=== PATIENT | female | born 1960 | race African-American/Black ===

== ENCOUNTER 2018-04-27 00:22 | Emergency (ER) | payer MEDICAID ==
[~2018-04-27] VITALS: Ht 162.6 cm; Wt 98.9 kg
[2018-04-27] MEDS ORDERED: ADALAT20 MG ORAL (00:44)
[2018-04-27 01:15] VITALS: BP 141/74
[2018-04-27] MEDS ORDERED: Acetaminophen 500mg (ES) tab ORAL ONE (01:15)
[2018-04-27 02:02] LABS: APPEARANCE,URINE CLEAR; BILIRUBIN, URINE NEGATIVE (NEGATIVE); COLOR,URINE PALE YELLOW; GLUCOSE, URINE (UA) NEGATIVE (NEGATIVE); KETONES,URINE NEGATIVE (NEGATIVE); LEUKOCYTE ESTERASE ,URINE NEGATIVE (NEGATIVE); NITRITE,URINE NEGATIVE (NEGATIVE); PH,URINE 6.5 (4.5-8.0); PROTEIN,URINE NEGATIVE (NEGATIVE); UROBILINOGEN,URINE NORMAL MG/DL (0.0-1.0)
[2018-04-27 02:05] LABS: BASOPHILS % (AUTO) 1.7 % (0.0-2.0); EOSINOPHILS % (AUTO) 3.6 % (0.0-3.0); HEMATOCRIT 45.3 % (37.0-47.0); HEMOGLOBIN 14.3 G/DL (12.0-16.0); LYMPHOCYTES % (AUTO) 43.4 % (20.0-45.0); MEAN CORPUSCULAR VOLUME 91 FL (80-99); MONOCYTES % (AUTO) 9.5 % (1.0-10.0); NEUTROPHILS % (AUTO) 41.7 % (45.0-75.0); PLATELET COUNT 184 K/UL (150-450); RED CELL DISTRIBUTION WIDTH 13.4 % (11.6-14.8); WHITE BLOOD COUNT 4.9 K/UL (4.8-10.8)
[2018-04-27 02:14] LABS: ANION GAP 4 mmol/L (5-15); BLOOD UREA NITROGEN 6 mg/dL (7-18); CALCIUM 9.3 MG/DL (8.5-10.1); CARBON DIOXIDE 26 MMOL/L (21-32); CHLORIDE 106 MMOL/L (98-107); CREATININE 0.6 MG/DL (0.55-1.30); SODIUM 136 MMOL/L (136-145)
[2018-04-27 02:27] LABS: ALANINE AMINOTRANSFERASE 22 U/L (12-78); ALBUMIN 3.9 G/DL (3.4-5.0); ALBUMIN/GLOBULIN RATIO 0.9 (1.0-2.7); ALKALINE PHOSPHATASE 63 U/L (46-116); ASPARTATE AMINO TRANSFERASE 31 U/L (15-37); BILIRUBIN,TOTAL 0.3 MG/DL (0.2-1.0)
[2018-04-27] MEDS ORDERED: NORVASC5 MG ORAL (02:47)
[2018-04-27 02:48] VITALS: BP 136/69
--- NOTE | 2018-04-27 02:48 | Diagnostic Imaging Report ---
EXAM: CT Head Without Intravenous Contrast. CLINICAL HISTORY: PAIN TECHNIQUE: Axial computed tomography images of the head/brain without intravenous contrast. CTDI is 78.5 mGy and DLP is 1281 mGy-cm. One or more of the following dose reduction techniques were used: automated exposure control, adjustment of the mA and/or kV according to patient size, use of iterative reconstruction technique. COMPARISON: No relevant prior studies available. FINDINGS: Brain: Unremarkable. No hemorrhage. No significant white matter disease. No edema. Ventricles: Unremarkable. No ventriculomegaly. Bones: No acute fracture. Sinuses: Unremarkable as visualized. No acute sinusitis. Mastoid air cells: Unremarkable as visualized. No mastoid effusion. IMPRESSION: Normal head/brain.
[2018-04-27 02:50] VITALS: BP 136/69
--- NOTE | 2018-04-28 05:48 | Emergency Room Report ---
History of Present Illness General Chief Complaint: Hypertension Source: Patient Present Illness HPI Patient is a 57-year-old female presented after increased blood pressure. Patient gradual onset of symptoms. She reports having increased blood pressure and had taken some the extended-release medication for her blood pressure. Patient reports having moderate headache. She denies any vomiting. She denies any dysuria or abdominal pain.The patient feels her blood pressure may be elevated due to recent stress at home. Allergies: Coded Allergies: IODINE (Verified Allergy, Intermediate, Hives, Itching, Vomiting, 04/27/18) CODEINE (Verified Allergy, Unknown, Hives, 04/27/18) Patient History Last Menstrual Period: 20 years ago Reviewed Nursing Documentation: PMH: Agreed; PSxH: Agreed Nursing Documentation-PMH Hx Hypertension: Yes Hx Pacemaker: No Hx Asthma: No Hx Diabetes: No Hx Cancer: Yes - Colon Ca Remission 10 years Review of Systems All Other Systems: negative except mentioned in HPI Physical Exam Vital Signs Date Time Temp Pulse Resp B/P (MAP) Pulse Ox O2 Delivery O2 Flow Rate FiO2 04/27/18 00:38 98.2 90 16 175/96 95 Room Air 98.2 General Appearance: well appearing, no apparent distress, alert, GCS 15 Head: normocephalic, atraumatic ENT: hearing grossly normal, normal voice Neck: full range of motion, supple Respiratory: no respiratory distress, speaking full sentences Musculoskeletal: no calf tenderness Neurologic: normal gait Psychiatric: mood/affect normal Skin: no rash Medical Decision Making Diagnostic Impression: Primary Impression: Hypertension ER Course Patient presented for elevated blood pressure. The differential diagnosis included was not limited to myocardial infarction, hypertensive crisis, substance abuse, medication withdrawal, medication noncompliance.Because of complexity of patient's case laboratory testing and imaging studies were ordered. The patient was noted to have elevated blood pressure. This had spontaneously lowered since patient had taken her medications. I EKG interpreted by me showed normal sinus rhythm without acute ST or T wave changes. Laboratory studies were unremarkable. CT the head read by radiology showed no evidence of acute intracranial hemorrhage or CVA.The patient is advised to follow up with primary care doctor in 1-2 days. Patient is advised to return if any worsening condition or if any changes in status that are concerning. This report is dictated with [employer] bench hand software which may occasionally lead to discrepancies related to use of this software. Labs Test 04/27/18 01:43 White Blood Count 4.9 K/UL (4.8-10.8) Red Blood Count 5.00 M/UL (4.20-5.40) Hemoglobin 14.3 G/DL (12.0-16.0) Hematocrit 45.3 % (37.0-47.0) Mean Corpuscular Volume 91 FL (80-99) Mean Corpuscular Hemoglobin 28.7 PG (27.0-31.0) Mean Corpuscular Hemoglobin Concent 31.7 G/DL (32.0-36.0) Red Cell Distribution Width 13.4 % (11.6-14.8) Platelet Count 184 K/UL (150-450) Mean Platelet Volume 10.3 FL (6.5-10.1) Neutrophils (%) (Auto) 41.7 % (45.0-75.0) Lymphocytes (%) (Auto) 43.4 % (20.0-45.0) Monocytes (%) (Auto) 9.5 % (1.0-10.0) Eosinophils (%) (Auto) 3.6 % (0.0-3.0) Basophils (%) (Auto) 1.7 % (0.0-2.0) Urine Color Pale yellow Urine Appearance Clear Urine pH 6.5 (4.5-8.0) Urine Specific [place] 1.010 (1.005-1.035) Urine Protein Negative (NEGATIVE) Urine Glucose (UA) Negative (NEGATIVE) Urine Ketones Negative (NEGATIVE) Urine Occult Blood 1+ (NEGATIVE) Urine Nitrite Negative (NEGATIVE) Urine Bilirubin Negative (NEGATIVE) Urine Urobilinogen Normal MG/DL (0.0-1.0) Urine Leukocyte Esterase Negative (NEGATIVE) Urine RBC 0-2 /HPF (0 - 2) Urine WBC 0 /HPF (0 - 2) Urine Squamous Epithelial Cells Few /LPF (NONE/OCC) Urine Bacteria None /HPF (NONE) Sodium Level 136 MMOL/L (136-145) Potassium Level 4.0 MMOL/L (3.5-5.1) Chloride Level 106 MMOL/L (98-107) Carbon Dioxide Level 26 MMOL/L (21-32) Anion Gap 4 mmol/L (5-15) Blood Urea Nitrogen 6 mg/dL (7-18) Creatinine 0.6 MG/DL (0.55-1.30) Estimat Glomerular Filtration Rate > 60 mL/min (>60) Glucose Level 103 MG/DL (74-106) Calcium Level 9.3 MG/DL (8.5-10.1) Total Bilirubin 0.3 MG/DL (0.2-1.0) Aspartate Amino Transf (AST/SGOT) 31 U/L (15-37) Alanine Aminotransferase (ALT/SGPT) 22 U/L (12-78) Alkaline Phosphatase 63 U/L (46-116) Troponin I 0.000 ng/mL (0.000-0.056) Pro-B-Type Natriuretic Peptide 45 pg/mL (0-125) Total Protein 8.3 G/DL (6.4-8.2) Albumin 3.9 G/DL (3.4-5.0) Globulin 4.4 g/dL Albumin/Globulin Ratio 0.9 (1.0-2.7) Thyroid Stimulating Hormone (TSH) 1.683 uiU/mL (0.358-3.740) Last Vital Signs Date Time Temp Pulse Resp B/P (MAP) Pulse Ox O2 Delivery O2 Flow Rate FiO2 04/27/18 02:50 98.2 16 136/69 95 Room Air 98.2 04/27/18 01:15 79 Status: improved Disposition: HOME, SELF-CARE Condition: Stable Scripts Amlodipine Besylate (Norvasc) 5 Mg Tablet 5 MG ORAL DAILY, #30 TAB Prov: Charles Mclaughlin MD 04/27/18 [facility]errals[facility] (PCP) Patient Instructions: Hypertension Charles Mclaughlin MD Apr 28, 2018 05:48
--- NOTE | 2018-04-29 14:22 | Cardiology Report ---
APPROVED REPORT EKG Measurement Heart [id number] Normal sinus rhythm Voltage criteria for left ventricular hypertrophy Abnormal ECG
== END 2018-04-27 02:51 | disposition home or self-care (01) ==
LOC: EMR 00:57
DX: I10 Essential (primary) hypertension (principal); Z85.038 Personal history of other malignant neoplasm of large intestine; Z88.5 Allergy status to narcotic agent
CPT/HCPCS: 36415; 70450; 80053; 81001; 83880; 84443; 84484; 85025; 93005; 99283

== ENCOUNTER 2018-06-16 11:28 | Emergency (ER) | payer MEDICAID ==
[~2018-06-16] VITALS: Ht 162.6 cm; Wt 98.9 kg
[~2018-06-16 11:28] MED LIST: ADALAT20 MG ORAL; NORVASC5 MG ORAL
[2018-06-16 11:58] VITALS: BP 156/86
[2018-06-16] MEDS ORDERED: CALADRYL 1%-8%177 ML TP (12:13)
[2018-06-16] MEDS ORDERED: CLARITIN10 MG ORAL (12:13)
[2018-06-16] MEDS ORDERED: PREDNISONE20 MG ORAL (12:13)
--- NOTE | 2018-06-16 12:14 | Emergency Room Report ---
History of Present Illness General Chief Complaint: Skin Rash/Abscess Source: Patient Present Illness HPI 57-year-old female patient presents ER complaining of multiple bites on her bilateral lower extremities for the past 2 days. Reports extremely pruritic. Reports that shortly she was "bit by spiders" working in the backyard. Denies fever, chest pain, shortness of breath. Denies read streaking. Denies tenderness to palpation. Denies pain. Denies vomiting or tongue swelling. Reports took one Benadryl last night, has not taken any other medications. Reports applied alcohol and witch leyla to affected areas without relief of symptoms. Denies history of diabetes. Allergies: Coded Allergies: IODINE (Verified Allergy, Intermediate, Hives, Itching, Vomiting, 04/27/18) CODEINE (Verified Allergy, Unknown, Hives, 04/27/18) Patient History Past Medical History: see triage record Reviewed Nursing Documentation: PMH: Agreed; PSxH: Agreed Nursing Documentation-PMH Past Medical History: No History, Except For Hx Cardiac Problems: No Hx Hypertension: Yes Hx Pacemaker: No Hx Asthma: No Hx COPD: No Hx Diabetes: No Hx Cancer: Yes - Colon Ca Remission 10 years Hx Gastrointestinal Problems: No Hx Dialysis: No History Of Psychiatric Problem: No Hx Neurological Problems: No Hx Cerebrovascular Accident: No Hx Seizures: No Review of Systems All Other Systems: negative except mentioned in HPI Physical Exam Vital Signs Date Time Temp Pulse Resp B/P (MAP) Pulse Ox O2 Delivery O2 Flow Rate FiO2 06/16/18 11:47 98.4 73 16 156/86 99 Room Air 98.4 Sp02 EP Interpretation: reviewed, normal General Appearance: well appearing, no apparent distress, alert, GCS 15, non- toxic Head: normocephalic, atraumatic Eyes: bilateral eye normal inspection, bilateral eye PERRL ENT: hearing grossly normal, normal pharynx, no angioedema, normal voice, uvula midline, moist mucus membranes Neck: full range of motion Respiratory: lungs clear, normal breath sounds, no rhonchi, no respiratory distress, no accessory muscle use, no wheezing, speaking full sentences Cardiovascular #1: regular rate, rhythm, no edema Musculoskeletal: back normal, digits/nails normal, gait/station normal, normal range of motion, non-tender Neurologic: alert, oriented x3, responsive, motor strength/tone normal, sensory intact Psychiatric: mood/affect normal Skin: rash - Bilateral extremities 8: Multiple erythematous macules surround erythema, no surrounding edema or red st no fluctuance or induration, no palpable mass,, no bite dobbins, no central clearing or Satellite lesions, no target sign Medical Decision Making PA Attestation Dr. Her is my supervising Physician whom patient management has been discussed with. Diagnostic Impression: Primary Impression: Bug bite ER Course Pt. presents to the ED c/o bug bite. Ddx considered but are not limited to atopic dermatitis, bug bite, urticaria, allergic reaction. Vital signs: are WNL, pt. is afebrile ER COURSE: physical exam shows erythematous macules with surrounding erythema, likely localized inflammatory reaction to likely bug bites. No fluctuance or induration, no palpable mass, low suspicion for abscess does not require incision and drainage. No surrounding edema, no warmth to touch, patient denies pain, no well-defined borders, low suspicion for cellulitis. Do not scratch or itch, apply cool compresses to affected area. Take Benadryl at night for itching symptoms, do not take prior to drinking, driving, or operating heavy machinery, may cause drowsiness. Followup with PCP and request referral to derm. Provided with contact information. ER precautions given, return ER for new or worsening of symptoms including but not limited to spreading rash, red streaking, chest pain, shortness of breath, intractable vomiting, tongue swelling. DISCHARGE: -Rx given for Benadryl for pruritis. SE may cause drowsiness. -Rx given for prednisone for itching symptoms. -RX provided for Caladryl lotion At this time pt. is stable for d/c to home. Patient resting comfortably, in no acute distress, nontoxic appearing. Care plan and follow up instructions have been discussed with the patient prior to discharge. Patient provided with printed patient care instructions, and any necessary prescriptions. Patient instructed to follow-up with primary care provider in 3 - 5 days. Patient questions asked and answered. Patient reports understanding and agreement to treatment plan. ER precautions given. Patient instructed to return to ER immediately for any new or worsening of symptoms including but not limited to increasing SOB, persistent fever. - Please note that this Emergency Department Report was dictated using [employer] technology software, occasionally this can lead to erroneous entry secondary to interpretation by the dictation equipment. Last Vital Signs Date Time Temp Pulse Resp B/P (MAP) Pulse Ox O2 Delivery O2 Flow Rate FiO2 06/16/18 11:58 98.4 16 156/86 99 Room Air 98.4 06/16/18 11:47 73 Disposition: HOME, SELF-CARE Condition: Stable Scripts Loratadine (CLARITIN) 10 Mg Tablet 10 MG ORAL DAILY, #21 TAB Prov: Harvey Andersen 06/16/18 Pramoxine HCl/Calamine (Caladryl 1%-8% Lotion) 177 Ml Lotion 177 ML TP BID, #177 ML Prov: Harvey Andersen 06/16/18 Prednisone* (PREDNISONE*) 20 Mg Tablet 20 MG ORAL DAILY for 4 Days, #4 TAB 0 Refills Prov: Harvey Andersen 06/16/18 Patient Instructions: Insect Bite, [id number], Poison Nyla Dermatitis Additional Instructions: Followup with primary care provider in 2-3 days. Request referral to dermatology. Do not scratch or itch. Apply cool compresses to affected area. Take medications as directed. Do not apply medication to face or skin creases. SE Benadryl drowsiness, do not take prior to drinking, driving, operating heavy machinery. Patient questions asked and answered. ER precautions given, patient instructed to return to ER immediately for any new or worsening of symptoms. [facility] Harvey Andersen Jun 16, 2018 12:14
[2018-06-16 12:33] VITALS: BP 156/86
[2018-06-17] MEDS ORDERED: BACTRIM DS TAB1 EAC1 ORAL (16:09)
[2018-06-17] MEDS ORDERED: HYDROCORTISONE30 G2 TP (16:09)
[2018-06-17] MEDS ORDERED: BACITRACIN-P28.35 GM TP (16:09)
== END 2018-06-16 12:33 | disposition home or self-care (01) ==
LOC: EMR 12:12
DX: S80.861A Insect bite (nonvenomous), right lower leg, initial encounter (principal); S80.862A Insect bite (nonvenomous), left lower leg, initial encounter; W57.XXXA Bitten or stung by nonvenomous insect and other nonvenomous arthropods, initial encounter; Y93.H2 Activity, gardening and landscaping; Y92.017 Garden or yard in single-family (private) house as the place of occurrence of the external cause; I10 Essential (primary) hypertension; Z85.038 Personal history of other malignant neoplasm of large intestine
CPT/HCPCS: 99284; J7512

== ENCOUNTER 2018-06-17 15:40 | Emergency (ER) | payer MEDICAID ==
[~2018-06-17] VITALS: Ht 162.6 cm; Wt 98.9 kg
[~2018-06-17 15:40] MED LIST changes: +CALADRYL 1%-8%177 ML TP; +CLARITIN10 MG ORAL; +PREDNISONE20 MG ORAL
[2018-06-17 15:47] VITALS: BP 148/87
[2018-06-17] MEDS ORDERED: HYDROCORTISONE30 G2 TP (16:09)
[2018-06-17] MEDS ORDERED: BACTRIM DS TAB1 EAC1 ORAL (16:09)
[2018-06-17] MEDS ORDERED: BACITRACIN-P28.35 GM TP (16:09)
--- NOTE | 2018-06-17 16:09 | Emergency Room Report ---
History of Present Illness General Chief Complaint: Skin Rash/Abscess Source: Medical Record Present Illness HPI 57-year-old female patient presents ER requesting wound check. patient was previously seen in ER for complaints. States that the wounds have become more red since her previous visit yesterday. Requesting topical antibiotics. states she does not know tetanus vaccination status. Denies diabetes. Denies fever, chest pain, shortness of breath. denies vomiting or tongue swelling. Denies contacts similar symptoms. Allergies: Coded Allergies: IODINE (Verified Allergy, Intermediate, Hives, Itching, Vomiting, 04/27/18) CODEINE (Verified Allergy, Unknown, Hives, 04/27/18) Patient History Past Medical History: see triage record Reviewed Nursing Documentation: PMH: Agreed; PSxH: Agreed Nursing Documentation-PMH Past Medical History: No History, Except For Hx Cardiac Problems: No Hx Hypertension: Yes Hx Pacemaker: No Hx Asthma: No Hx COPD: No Hx Diabetes: No Hx Cancer: Yes - Colon Ca Remission 10 years Hx Gastrointestinal Problems: No Hx Dialysis: No Hx Neurological Problems: No Hx Cerebrovascular Accident: No Hx Seizures: No Review of Systems All Other Systems: negative except mentioned in HPI Physical Exam Vital Signs Date Time Temp Pulse Resp B/P (MAP) Pulse Ox O2 Delivery O2 Flow Rate FiO2 06/17/18 15:47 98.0 73 16 148/87 98 Room Air 98.1 Sp02 EP Interpretation: reviewed, normal General Appearance: well appearing, no apparent distress, alert, GCS 15, non- toxic Head: normocephalic, atraumatic Eyes: bilateral eye normal inspection, bilateral eye PERRL ENT: hearing grossly normal, normal pharynx, no angioedema, normal voice, uvula midline, moist mucus membranes Neck: full range of motion Respiratory: lungs clear, normal breath sounds, no rhonchi, no respiratory distress, no accessory muscle use, no wheezing, speaking full sentences Cardiovascular #1: regular rate, rhythm, no edema Musculoskeletal: back normal, digits/nails normal, gait/station normal, normal range of motion, non-tender Neurologic: alert, oriented x3, responsive, motor strength/tone normal, sensory intact Skin: other - Bilateral lower extremities 8: Multiple erythematous macules with surrounding erythema and excoriations, more erythematous than previous visit, no surrounding edema or red streaking, no fluctuance or induration, no palpable mass, no bite odbbins, no central clearing or Satellite lesions, no target sign Medical Decision Making PA Attestation Dr. Benitez is my supervising Physician whom patient management has been discussed with. Diagnostic Impression: Primary Impression: Encounter for wound re-check ER Course Pt. presents to the ED for wound check. Ddx considered but are not limited to atopic dermatitis, bug bite, urticaria, allergic reaction. Vital signs: are WNL, pt. is afebrile ER COURSE: TDAp provided to patient. physical exam, bug bites appear more erythematous than previous visit, believe patient would benefit from antibiotic treatment at this time. Will provide patient with topical and oral antibiotics, hydrocortisone cream for itching symptoms. Do not scratch, apply cool compresses to affected area. Take Benadryl at night for itching symptoms, side effect drowsiness do not take prior drinking, driving, operating of machinery. Take Claritin during the day for itching symptoms. Wound check in 2-3 days, return to ER or f/u with PCP for wound check. Followup with PCP and request referral to derm. patient seen and evaluated by Dr. Benitez, agrees with assessment and treatment plan. DISCHARGE: -Rx given for Bactrim -Rx provided for Bacitracin -Rx given for hydrocortisone cream. Do not apply to face or skin creases. At this time pt. is stable for d/c to home. Patient resting comfortably, in no acute distress, nontoxic appearing. Care plan and follow up instructions have been discussed with the patient prior to discharge. Patient provided with printed patient care instructions, and any necessary prescriptions. Patient instructed to follow-up with primary care provider in 3 - 5 days. Patient questions asked and answered. Patient reports understanding and agreement to treatment plan. ER precautions given. Patient instructed to return to ER immediately for any new or worsening of symptoms including but not limited to increasing SOB, persistent fever. - Please note that this Emergency Department Report was dictated using [employer] technology software, occasionally this can lead to erroneous entry secondary to interpretation by the dictation equipment. Last Vital Signs Date Time Temp Pulse Resp B/P (MAP) Pulse Ox O2 Delivery O2 Flow Rate FiO2 06/17/18 15:47 98.0 73 16 148/87 98 Room Air 98.1 Disposition: HOME, SELF-CARE Condition: Stable Scripts Hydrocortisone (Hydrocortisone Cream 2.5%) Y Cream.appl 1 APPLIC TP BID, #28 GM Prov: Harvey Andersen 06/17/18 Trimethoprim/Sulfamethoxazole 160/800* (BACTRIM DS TABLET*) 1 Each Tablet 1 TAB ORAL TWICE A DAY, #14 TAB Prov: Harvey Andersen 06/17/18 Bacitracin/Polymyxin B Sulfate (BACITRACIN-POLYMYXIN OINTMENT) 28.35 Gm Oint...g. 1 APPLIC TP BID, #28 GM Prov: Harvey Andersen 06/17/18 Patient Instructions: Insect Bite, [id number] Additional Instructions: Followup with primary care provider in 3 -5 days. Request referral to dermatology. Do not scratch or itch. Apply cool compresses to affected area. Take medications as directed. Do not apply medication to face or skin creases. SE Benadryl drowsiness, do not take prior to drinking, driving, operating heavy machinery. Patient questions asked and answered. ER precautions given, patient instructed to return to ER immediately for any new or worsening of symptoms. Harvey Andersen Jun 17, 2018 16:09
[2018-06-17] MEDS ORDERED: Tetanus/Diptheria/Pertussis Vaccine 0.5ml Syr IM ONE (16:15)
[2018-06-17 16:18] VITALS: BP 148/87
== END 2018-06-17 16:30 | disposition home or self-care (01) ==
LOC: EMR 16:00
DX: Z48.00 Encounter for change or removal of nonsurgical wound dressing (principal); M79.661 Pain in right lower leg; Z23 Encounter for immunization; Z88.5 Allergy status to narcotic agent; Z91.048 Other nonmedicinal substance allergy status
CPT/HCPCS: 90471; 90715; 99283

== ENCOUNTER 2018-09-03 01:28 | Emergency (ER) | payer MEDICAID ==
[~2018-09-03] VITALS: Ht 162.6 cm; Wt 81.6 kg
[~2018-09-03 01:28] MED LIST changes: +BACITRACIN-P28.35 GM TP; +BACTRIM DS TAB1 EAC1 ORAL; +HYDROCORTISONE30 G2 TP
[2018-09-03 01:35] VITALS: BP 150/98
[2018-09-03 02:01] LABS: APPEARANCE,URINE CLOUDY; BILIRUBIN, URINE NEGATIVE (NEGATIVE); COLOR,URINE PALE YELLOW; GLUCOSE, URINE (UA) NEGATIVE (NEGATIVE); KETONES,URINE NEGATIVE (NEGATIVE); LEUKOCYTE ESTERASE ,URINE 3+ (NEGATIVE); NITRITE,URINE NEGATIVE (NEGATIVE); PH,URINE 6 (4.5-8.0); PROTEIN,URINE 2+ (NEGATIVE); UROBILINOGEN,URINE NORMAL MG/DL (0.0-1.0)
--- NOTE | 2018-09-03 03:50 | Emergency Room Report ---
History of Present Illness General Chief Complaint: Vaginal Source: Patient Present Illness HPI Patient presents with several days of blood on the toilet paper. She recently stopped taking amoxicillin for an upper respiratory infection. She's had urinary tract infections in the past. She is status post hysterectomy. There is some itching in the vaginal area. She denies pain. No rash. No NVD, abdominal pain. H/O colon ca Allergies: Coded Allergies: IODINE (Verified Allergy, Intermediate, Hives, Itching, Vomiting, 04/27/18) CODEINE (Verified Allergy, Unknown, Hives, 04/27/18) Patient History Past Medical History: see triage record Social History: Denies: smoking Social History Narrative from home Last Menstrual Period: 15 years ago Now: No Reviewed Nursing Documentation: PMH: Agreed; PSxH: Agreed Nursing Documentation-PMH Hx Cardiac Problems: No Hx Hypertension: Yes Hx Pacemaker: No Hx Asthma: No Hx COPD: No Hx Diabetes: No Hx Cancer: Yes - colon Hx Gastrointestinal Problems: No Hx Dialysis: No Hx Neurological Problems: No Hx Cerebrovascular Accident: No Hx Seizures: No Review of Systems All Other Systems: negative except mentioned in HPI Physical Exam Vital Signs Date Time Temp Pulse Resp B/P (MAP) Pulse Ox O2 Delivery O2 Flow Rate FiO2 09/03/18 01:32 98.4 89 16 150/98 98 Room Air Sp02 EP Interpretation: reviewed, normal General Appearance: well appearing, no apparent distress Head: normocephalic, atraumatic ENT: hearing grossly normal, normal voice Neck: full range of motion, supple Respiratory: no respiratory distress, speaking full sentences Cardiovascular #1: regular rate, rhythm Cardiovascular #2: 2+ radial (R) Gastrointestinal: normal inspection, normal bowel sounds, non tender, soft Genitourinary: no CVA tenderness, other - urethra inflammed, min cystocoel, no active bleed, some inflammation perivaginal area Musculoskeletal: no calf tenderness Neurologic: alert, normal gait Psychiatric: mood/affect normal Skin: no rash Medical Decision Making Diagnostic Impression: Primary Impression: UTI (urinary tract infection) Qualified Codes: N30.00 - Acute cystitis without hematuria ER Course Patient with blood when wiping self. She is post hysterectomy. She recently took Ampicillin for URI. DDX: UTI, vaginitis, yeast, trich amongst others. Evaluation with UA and wet mount. UA with pyuria. Macrobid and tylenol given. Clinically, suspicion high for yeast though not seen on wet mount. Discussed need for follow up with [facility]. Patient stable for outpatient observation and treatment. Laboratory Tests Test 09/03/18 01:53 Urine Color Pale yellow Urine Appearance Cloudy Urine pH 6 (4.5-8.0) Urine Specific [place] 1.020 (1.005-1.035) Urine Protein 2+ (NEGATIVE) H Urine Glucose (UA) Negative (NEGATIVE) Urine Ketones Negative (NEGATIVE) Urine Blood 5+ (NEGATIVE) H Urine Nitrite Negative (NEGATIVE) Urine Bilirubin Negative (NEGATIVE) Urine Urobilinogen Normal MG/DL (0.0-1.0) Urine Leukocyte Esterase 3+ (NEGATIVE) H Urine RBC 10-15 /HPF (0 - 2) H Urine WBC 15-20 /HPF (0 - 2) H Urine Squamous Epithelial Cells Occasional /LPF Urine Amorphous Sediment Moderate /LPF (NONE) H Urine Bacteria Few /HPF (NONE) Microbiology Date/Time Source Procedure Growth Status 09/03/18 02:43 Vaginal Wet Prep - Final Complete D/C VS with min HTN Status: improved Disposition: HOME, SELF-CARE Condition: Improved Scripts Acetaminophen (Tylenol) 325 Mg Tablet 650 MG ORAL Q6H PRN for Prn Pain/Headache/Temp > 101, #20 TAB 0 Refills Prov: Lorenzo Benitez MD 09/03/18 Fluconazole (FLUCONAZOLE) 100 Mg Tablet 100 MG ORAL DAILY PRN for at the end of the antibiotics, #1 TAB 0 Refills Prov: Lorenzo Benitez MD 09/03/18 Nitrofurantoin Monohyd/M-Cryst* (MACROBID 100 MG*) 100 Mg Capsule 100 MG ORAL EVERY 12 HOURS, #14 CAP Prov: Lorenzo Benitez MD 09/03/18 Referrals: [facility] (PCP) Lorenzo Benitez MD Sep 03, 2018 03:50
[2018-09-03] MEDS ORDERED: FLUCONAZOLE100 MG ORAL (03:52)
[2018-09-03] MEDS ORDERED: NITROFURANTOIN100 M2 ORAL (03:52)
[2018-09-03] MEDS ORDERED: TYLENOL325 MG ORAL (03:54)
[2018-09-03 04:07] VITALS: BP 142/90
[2018-09-03 04:10] VITALS: BP 146/90
== END 2018-09-03 04:07 | disposition home or self-care (01) ==
LOC: EMR 01:58
DX: N39.0 Urinary tract infection, site not specified (principal)
CPT/HCPCS: 81003; 87086; 87210; 99283

== ENCOUNTER 2018-12-09 08:02 | Emergency (ER) | payer MEDICAID ==
[~2018-12-09] VITALS: Ht 162.6 cm; Wt 95.3 kg
[~2018-12-09 08:02] MED LIST changes: +FLUCONAZOLE100 MG ORAL; +NITROFURANTOIN100 M2 ORAL; +TYLENOL325 MG ORAL
[2018-12-09 08:18] VITALS: BP 155/79
--- NOTE | 2018-12-09 08:18 | NUR ---
ED Nurse Note: A/OX4. AMBUALTED IN TO ER DUE TO FREQUENT URINATION, SLIGHT ITCHING AT VAGINAL AREA, LOWER BACK PAIN X1 WEEK. DENIES SWELLING, BLEEDING, REDNESS, AND DISCHARGE. PER PT, HER SPOUSE RECEIVED TX FOR STD YESTERDAY.
--- NOTE | 2018-12-09 08:24 | NUR ---
ED Nurse Note: URINE COLLECTED AND SENT DOWN TO THE LAB.
[2018-12-09 08:45] LABS: APPEARANCE,URINE CLEAR; BILIRUBIN, URINE NEGATIVE (NEGATIVE); COLOR,URINE PALE YELLOW; GLUCOSE, URINE (UA) NEGATIVE (NEGATIVE); KETONES,URINE NEGATIVE (NEGATIVE); LEUKOCYTE ESTERASE ,URINE NEGATIVE (NEGATIVE); NITRITE,URINE NEGATIVE (NEGATIVE); PH,URINE 5 (4.5-8.0); PROTEIN,URINE NEGATIVE (NEGATIVE); UROBILINOGEN,URINE NORMAL MG/DL (0.0-1.0)
[2018-12-09] MEDS ORDERED: Azithromycin 250mg tab ORAL ONE (08:45)
[2018-12-09] MEDS ORDERED: Lidocaine 1% MPF 10mg/ml 5ml INJ ONE (08:45)
--- NOTE | 2018-12-09 09:03 | Emergency Room Report ---
History of Present Illness General Chief Complaint: Female Urogenital Problems Source: Patient Present Illness HPI 58-year-old female presents ED for evaluation. Patient complaining of frequent urination times one week. Denies flank pain. Denies fevers or chills. Denies nausea or vomiting. States that she found out her has an STD. Patient is here to get treated. Denies any discharge. Denies fevers or chills. No other aggravating relieving factors. Denies any other associated symptoms Allergies: Coded Allergies: IODINE (Verified Allergy, Intermediate, Hives, Itching, Vomiting, 04/27/18) CODEINE (Verified Allergy, Unknown, Hives, 04/27/18) Patient History Past Medical History: other - colon cancer Past Surgical History: none Pertinent Family History: none Social History: Denies: smoking, alcohol use, drug use Now: No Immunizations: UTD Reviewed Nursing Documentation: PMH: Agreed; PSxH: Agreed Nursing Documentation-PMH Past Medical History: No History, Except For Hx Cardiac Problems: No Hx Hypertension: Yes Hx Pacemaker: No Hx Asthma: No Hx COPD: No Hx Diabetes: No Hx Cancer: Yes - colon Hx Gastrointestinal Problems: No Hx Dialysis: No Hx Neurological Problems: No Hx Cerebrovascular Accident: No Hx Seizures: No Review of Systems All Other Systems: negative except mentioned in HPI Physical Exam Vital Signs Date Time Temp Pulse Resp B/P (MAP) Pulse Ox O2 Delivery O2 Flow Rate FiO2 12/09/18 08:09 98.1 99 16 155/79 98 Room Air Sp02 EP Interpretation: reviewed, normal General Appearance: no apparent distress, alert, GCS 15, non-toxic Head: normocephalic, atraumatic Eyes: bilateral eye normal inspection, bilateral eye PERRL ENT: hearing grossly normal, normal pharynx, no angioedema, normal voice Neck: full range of motion, supple/symm/no masses Respiratory: chest non-tender, lungs clear, normal breath sounds, speaking full sentences Cardiovascular #1: regular rate, rhythm, no edema Cardiovascular #2: 2+ carotid (R), 2+ carotid (L), 2+ radial (R), 2+ radial (L) , 2+ dorsalis pedis (R), 2+ dorsalis pedis (L) Gastrointestinal: normal bowel sounds, non tender, soft, non-distended, no guarding, no rebound Rectal: deferred Genitourinary: normal inspection, no CVA tenderness Musculoskeletal: back normal, gait/station normal, normal range of motion, non- tender Neurologic: alert, oriented x3, responsive, motor strength/tone normal, sensory intact, speech normal Psychiatric: judgement/insight normal, memory normal, mood/affect normal, no suicidal/homicidal ideation Reflexes: 3+ bicep (R), 3+ bicep (L), 3+ tricep (R), 3+ tricep (L), 3+ knee (R) , 3+ knee (L) Skin: normal color, no rash, warm/dry, well hydrated Lymphatic: no adenopathy Medical Decision Making Diagnostic Impression: Primary Impression: STD exposure ER Course Hospital Course 58-year-old female presents ED with dysuria. Found out her has an STD Differential diagnoses include: trichimonas, gonorrhea, chlamydia Clinical course Patient placed on stretcher. After initial history physical exam reveals a female in no acute distress. Physical exam unremarkable. I ordered UA UA shows no signs of UTI. Discussed findings with patient. We will treat clinically for gonorrhea/Chlamydia Given azithromycin/Rocephin in ED. Safe for discharge close outpatient follow- up. patient is to follow-up with STD clinic for appropriate testing. Patient states she has a PMD Diagnosis - STD exposure Stable and discharged home with prescriptions for Rx flagyl. Instructed to followup with PMD. Return to ED if symptoms recur or worsen Labs Test 12/09/18 08:20 Urine Color Pale yellow Urine Appearance Clear Urine pH 5 (4.5-8.0) Urine Specific [place] 1.025 (1.005-1.035) Urine Protein Negative (NEGATIVE) Urine Glucose (UA) Negative (NEGATIVE) Urine Ketones Negative (NEGATIVE) Urine Blood 3+ (NEGATIVE) Urine Nitrite Negative (NEGATIVE) Urine Bilirubin Negative (NEGATIVE) Urine Urobilinogen Normal MG/DL (0.0-1.0) Urine Leukocyte Esterase Negative (NEGATIVE) Urine RBC 2-4 /HPF (0 - 2) Urine WBC 0-2 /HPF (0 - 2) Urine Squamous Epithelial Cells Occasional /LPF Urine Bacteria Occasional /HPF (NONE) Last Vital Signs Date Time Temp Pulse Resp B/P (MAP) Pulse Ox O2 Delivery O2 Flow Rate FiO2 12/09/18 08:18 98.1 99 16 155/79 98 Room Air Status: improved Disposition: HOME, SELF-CARE Condition: Stable Scripts Metronidazole* (FLAGYL*) 500 Mg Tablet 500 MG ORAL THREE TIMES A DAY, #21 TAB Prov: Wilber Muñoz MD 12/09/18 Referrals: [facility] (PCP) Wilber Muñoz MD Dec 09, 2018 09:03
[2018-12-09] MEDS ORDERED: METRONIDAZOLE500 MG ORAL (09:11)
[2018-12-09 09:15] VITALS: BP 155/79
--- NOTE | 2018-12-09 09:16 | NUR ---
ER Nurse Note: A/OX4. PT IS CLEARED BY DR.K. FAGAN INSTRUCTION AND PRESCRIPTIONS GIVEN, PT VERBALIZED UNDERSTSANDING. IV/ID WRISTBAND REMOVED. ALL BELONGINGS TAKEN BY PT. DENIES ANY PAIN AT THIS TIME. PT AMBULATED OUT OF ER WITH STEADY GAIT.
== END 2018-12-09 09:18 | disposition home or self-care (01) ==
LOC: EMR 08:31
DX: R35.0 Frequency of micturition (principal); Z20.2 Contact with and (suspected) exposure to infections with a predominantly sexual mode of transmission; I10 Essential (primary) hypertension; Z85.038 Personal history of other malignant neoplasm of large intestine; Z88.5 Allergy status to narcotic agent; Z88.8 Allergy status to other drugs, medicaments and biological substances
CPT/HCPCS: 81003; 96372; 99283; J0696; Q0144

== ENCOUNTER 2019-03-31 04:36 | Emergency (ER) | payer MEDICAID ==
[~2019-03-31] VITALS: Ht 162.6 cm; Wt 98.9 kg
[~2019-03-31 04:36] MED LIST changes: +METRONIDAZOLE500 MG ORAL
[2019-03-31 05:03] VITALS: BP_SYST 150; BP_SYST 151; BP_DIAS 81; BP_DIAS 83
--- NOTE | 2019-03-31 05:03 | NUR ---
ED Nurse Note: Pt arrived ED from home. c/o left low jaw and togue pain 5/10 today. Pt is A/O X 4, Vital signs stable at this time, waiting for orders.
[2019-03-31] MEDS ORDERED: AMOXICILLIN500 MG ORAL (05:15)
[2019-03-31] MEDS ORDERED: TYLENOL EXTRA500 MG ORAL (05:15)
--- NOTE | 2019-03-31 05:40 | NUR ---
ER DISCHARGE NOTE: Patient is cleared to be discharged per Dr. Muñoz. Pt is aox4 on room air with stable vital signs. Pt was given dc and prescription instructions and was able to verbalize understanding. Pt's ID band removed. Pt is able to ambulate well with steady gait and took all belongings.
--- NOTE | 2019-03-31 21:52 | Emergency Room Report ---
History of Present Illness General Chief Complaint: Headache Source: Patient Present Illness HPI 58-year-old female presents ED for evaluation. Patient complaining of pain inside her mouth for the last 3 days. States that she notes a "ball". Pain is dull, 8 out of 10, radiating to the jaw and behind the ear. States she has a fever but afebrile in triage. Denies cough. Denies sick contacts or recent travel. No other aggravating or relieving factors. Denies any other associated symptoms Allergies: Coded Allergies: IODINE (Verified Allergy, Intermediate, Hives, Itching, Vomiting, 04/27/18) CODEINE (Verified Allergy, Unknown, Hives, 04/27/18) Patient History Past Medical History: HTN, other - colon cancer Past Surgical History: none Pertinent Family History: none Social History: Denies: smoking, alcohol use, drug use Now: No Immunizations: UTD Reviewed Nursing Documentation: PMH: Agreed; PSxH: Agreed Nursing Documentation-PMH Hx Cardiac Problems: No Hx Hypertension: Yes Hx Pacemaker: No Hx Asthma: No Hx COPD: No Hx Diabetes: No Hx Cancer: Yes - colon Hx Gastrointestinal Problems: No Hx Dialysis: No Hx Neurological Problems: No Hx Cerebrovascular Accident: No Hx Seizures: No Review of Systems All Other Systems: negative except mentioned in HPI Physical Exam Vital Signs Date Time Temp Pulse Resp B/P (MAP) Pulse Ox O2 Delivery O2 Flow Rate FiO2 03/31/19 04:55 98.1 82 18 155/89 (111) 97 Room Air Sp02 EP Interpretation: reviewed, normal General Appearance: no apparent distress, alert, GCS 15, non-toxic Head: normocephalic, atraumatic Eyes: bilateral eye normal inspection, bilateral eye PERRL ENT: hearing grossly normal, normal voice, TMs + canals normal, other - multiple dental caries noted. nodular swelling noted to inner jaw Neck: full range of motion, supple, no meningismus, supple/symm/no masses Respiratory: chest non-tender, lungs clear, normal breath sounds, speaking full sentences Cardiovascular #1: regular rate, rhythm, no edema Cardiovascular #2: 2+ carotid (R), 2+ carotid (L), 2+ radial (R), 2+ radial (L) , 2+ dorsalis pedis (R), 2+ dorsalis pedis (L) Gastrointestinal: normal bowel sounds, non tender, soft, non-distended, no guarding, no rebound Rectal: deferred Genitourinary: normal inspection, no CVA tenderness Musculoskeletal: back normal, gait/station normal, normal range of motion, non- tender Neurologic: alert, oriented x3, responsive, motor strength/tone normal, sensory intact, speech normal Psychiatric: judgement/insight normal, memory normal, mood/affect normal, no suicidal/homicidal ideation Reflexes: 3+ bicep (R), 3+ bicep (L), 3+ tricep (R), 3+ tricep (L), 3+ knee (R) , 3+ knee (L) Skin: normal color, no rash, warm/dry, well hydrated Lymphatic: no adenopathy Medical Decision Making Diagnostic Impression: Primary Impression: Dental abscess ER Course 58-year-old female presents ED complaining of mouth pain Cracked tooth, dental abscess, cavity Patient placed on stretcher. After initial history, physical exam reveals a female in mild distress. Multiple dental caries noted. Very poor dentition. Sites of a hard nodular swelling noted inside the mouth. Not fluctuant. No induration. discussed with patient. We will discharge on antibiotics. Recommend follow-up with dentistry. we'll provide referrals Safe for discharge with close outpatient follow-up Diagnosis- dental abscess Stable and discharged to home prescription for amoxicillin. Instructed to see dentist as a walk-in this week. Return to ED if symptoms recur or worse Last Vital Signs Date Time Temp Pulse Resp B/P (MAP) Pulse Ox O2 Delivery O2 Flow Rate FiO2 03/31/19 05:03 98.1 81 18 150/81 97 Room Air Status: improved Disposition: HOME, SELF-CARE Condition: Stable Scripts Acetaminophen* (TYLENOL EXTRA STRENGTH*) 500 Mg Tablet 500 MG ORAL Q8H PRN for Prn Headache/Temp > 101, #30 TAB 0 Refills Prov: Wilber Muñoz MD 03/31/19 Amoxicillin* (AMOXIL*) 500 Mg Capsule 500 MG ORAL THREE TIMES A DAY, #21 CAP Prov: Wilber Muñoz MD 03/31/19 Referrals: [facility] ([facility]P) [facility](age 2-12) - Orthodontic Clinic - Hours: Mon,Wed,Th, 8:15am and 1pm (new patient screening), . 1pm. Emergency clinic Wednesday - Wednesday 8:30am and 1pm, . 1pm. *Call to check if clinic is open; No appointment necessary for the first visit ( new patient screening), Arrive 15-30 minutes early as it is first come, first serve. Patient Instructions: Dental Abscess, [id number] Wilber Muñoz MD Mar 31, 2019 21:52
== END 2019-03-31 05:40 | disposition home or self-care (01) ==
LOC: EMR 05:15
DX: K04.7 Periapical abscess without sinus (principal); I10 Essential (primary) hypertension; Z85.038 Personal history of other malignant neoplasm of large intestine
CPT/HCPCS: 99282

== ENCOUNTER 2019-12-09 07:16 | Emergency (ER) | payer MEDICAID ==
[~2019-12-09] VITALS: Ht 162.6 cm; Wt 95.3 kg
[~2019-12-09 07:16] MED LIST changes: +AMOXICILLIN500 MG ORAL; +TYLENOL EXTRA500 MG ORAL
--- NOTE | 2019-12-09 07:33 | Emergency Room Report ---
History of Present Illness General Chief Complaint: Upper Respiratory Illness Source: Patient Present Illness HPI Patient presents with 10 days of cough. She heard herself wheezing and therefore came into the emergency department. She also has been coughing up green thick phlegm without any blood. She complains about pleuritic chest pain with the cough bilateral chest. She denied pain with the triage nurse. She rates the pain sleep 3/10 with me. She has used an inhaler in the past but does not have one at this time. No calf pain or edema. No nausea, vomiting or diarrhea. No dysuria. No rashes. No headache. She denies fevers or chills. Patient's granddaughter is ill also with viral upper respiratory infection. No sore throat, palpitations, abdominal pain, shortness of breath, depression, anxiety, visual changes, dizziness. Patient with a history of hypertension. She is reluctant to take medications. She recently failed a prescription for nifedipine. She is poised to take this today. Allergies: Coded Allergies: IODINE (Verified Allergy, Intermediate, Hives, Itching, Vomiting, 04/27/18) CODEINE (Verified Allergy, Unknown, Hives, 04/27/18) Patient History Past Medical History: see triage record Social History: Denies: smoking, alcohol use, drug use Social History Narrative Cares for her granddaughter Reviewed Nursing Documentation: PMH: Agreed; PSxH: Agreed Nursing Documentation-PMH Past Medical History: No History, Except For Hx Cardiac Problems: No Hx Hypertension: Yes Hx Pacemaker: No Hx Asthma: No Hx COPD: No Hx Diabetes: No Hx Cancer: Yes - colon Hx Gastrointestinal Problems: No Hx Dialysis: No Hx Neurological Problems: No Hx Cerebrovascular Accident: No Hx Seizures: No Physical Exam Vital Signs Date Time Temp Pulse Resp B/P (MAP) Pulse Ox O2 Delivery O2 Flow Rate FiO2 12/09/19 07:20 98.2 94 16 173/89 (117) 96 Room Air Medical Decision Making Diagnostic Impression: Primary Impression: Asthmatic bronchitis Qualified Codes: J45.30 - Mild persistent asthma, uncomplicated Additional Impressions: Chest pain Qualified Codes: R07.1 - Chest pain on breathing HTN (hypertension) Qualified Codes: I10 - Essential (primary) hypertension ER Course Patient presents with 10 days of upper respiratory infection. Differential includes pneumonia, acute myocardial infarction, asthma exacerbation, asthmatic bronchitis amongst others. Based on clinical presentation pulmonary embolus unlikely. Evaluation with EKG and chest x-ray. Treatment with prednisone and albuterol. Pain treated with Tylenol. EKG without injury and normal. Chest x-ray no infiltrates. Patient improved with breathing treatment. Blood pressure improved. Due to the diagnosis of asthmatic bronchitis antibiotics are indicated with the character of the patient's sputum. Discussed treatment plan with patient. Patient stable for outpatient observation and treatment. EKG Diagnostic Results Rate: normal Rhythm: NSR ST Segments: no acute changes Rhythm Strip Diag. Results EP Interpretation: yes Rhythm: NSR, no PVC's, no ectopy Chest X-Ray Diagnostic Results Chest X-Ray Diagnostic Results : Chest X-Ray Ordered: Yes # of Views/Limited/Complete: 1 View Indication: Other EP Interpretation: Yes Interpretation: no consolidation, no effusion, no pneumothorax Impression: No acute disease Electronically Signed by: Electronically signed by Lorenzo Benitez MD Last Vital Signs Date Time Temp Pulse Resp B/P (MAP) Pulse Ox O2 Delivery O2 Flow Rate FiO2 12/09/19 09:17 98.5 78 16 159/74 97 Room Air 12/09/19 08:13 21 Status: improved Disposition: HOME, SELF-CARE Condition: Improved Scripts Acetaminophen (Tylenol) 325 Mg Tablet 650 MG ORAL Q6H PRN for Prn Pain/Headache/Temp > 101, #20 TAB 0 Refills Prov: Lorenzo Benitez MD 12/09/19 Azithromycin* (ZITHROMAX*) 250 Mg Tablet 250 MG ORAL DAILY, #6 TAB 0 Refills Take two tables once daily for 1 day, then one tablet once daily for 4 days. Prov: Lorenzo Benitez MD 12/09/19 Guaifenesin/Codeine Phos* (ROBITUSSIN AC*) 118 Ml Liquid 5 ML ORAL Q6H PRN for For Cough, #90 ML 0 Refills Prov: Lorenzo Benitez MD 12/09/19 Albuterol Sulfate* (ALBUTEROL SULFATE MDI*) 8.5 Gm Hfa.aer.ad 2 PUFF INH Q6H, #1 EA 0 Refills Prov: Lorenzo Benitez MD 12/09/19 Lorenzo Benitez MD Dec 09, 2019 07:33
--- NOTE | 2019-12-09 07:40 | NUR ---
ED Nurse Note: Pt walked in with w/ cough, congestion, headache, body aches x10 days. Pt is alert and orientedx4, ambulatory. Pt lungs are clear bilaterally. Pt has been seen by doctor Emmanuel. Pt denies nausea, vomiting.
[2019-12-09 07:47] VITALS: BP 169/82
[2019-12-09] MEDS ORDERED: Albuterol ud Inhalation HHN ONE (08:00)
[2019-12-09] MEDS ORDERED: GUAIFENESIN-CO118 M1 ORAL (08:58)
[2019-12-09] MEDS ORDERED: TYLENOL325 MG ORAL (08:58)
[2019-12-09] MEDS ORDERED: ZITHROMAX250 MG ORAL (08:58)
[2019-12-09] MEDS ORDERED: ALBUTEROL SULF8.5 GM INH (08:58)
--- NOTE | 2019-12-09 09:16 | NUR ---
ER DISCHARGE NOTE: Patient is cleared to be discharged per ERMD, pt is aox4, on room air, with stable vital signs. pt was given dc and prescription instructions, pt was able to verbalize understanding, pt id band removed. pt is able to ambulate with steady gait. pt took all belongings. Pt educated about albuterol.
[2019-12-09 09:17] VITALS: BP 159/74
--- NOTE | 2019-12-09 15:05 | Diagnostic Imaging Report ---
EXAM: XR Chest, 1 View CLINICAL HISTORY: COUGH TECHNIQUE: Frontal view of the chest. COMPARISON: None FINDINGS: Hardware: None. Lungs/pleura: Normal. No focal consolidation. No pleural effusion or pneumothorax. Heart/mediastinum: Normal. No cardiomegaly. Soft tissues: Unremarkable. Bones: No acute fracture. Upper abdomen: Normal. IMPRESSION: No acute disease identified.
== END 2019-12-09 09:18 | disposition home or self-care (01) ==
LOC: EMR 08:43
DX: J45.30 Mild persistent asthma, uncomplicated (principal); R07.1 Chest pain on breathing; I10 Essential (primary) hypertension; Z85.030 Personal history of malignant carcinoid tumor of large intestine; Z88.6 Allergy status to analgesic agent; Z91.041 Radiographic dye allergy status
CPT/HCPCS: 71045; 93005; J7512; Z7502; 99283